=== PATIENT | male | born 1995 | race African-American/Black ===

== ENCOUNTER 2024-01-20 08:40 | Emergency (ER) | payer MEDICARE ==
--- NOTE | 2024-01-20 09:11 | RAD REPORT ---
EXAMINATION: XR RIGHT SHOUDLER CLINICAL INDICATION: Male, 28 years old. PAIN RIGHT TECHNIQUE: Multiple views of the right shoulder were obtained. COMPARISON: No prior exam. FINDINGS: No bone or joint abnormality detected.
--- NOTE | 2024-01-20 09:12 | RAD REPORT ---
EXAMINATION: CT CERVICAL SPINE WITHOUT CONTRAST HISTORY: Neck pain, radiculopathy COMPARISON: None TECHNIQUE: Multiple contiguous axial images were obtained in a CT of the cervical spine without IV co ntrast. Sagittal and coronal reformats were performed. One or more of the following dose reduction techniques were used: Automated exposure control, adjustment of the mA and kV according to patient si ze, and iterative reconstruction. Unless otherwise specified, incidental findings do not require dedicated imaging follow-up. FINDINGS: The vertebral bodies and intervertebral discs demonstrate normal height and alignment without fractu re or subluxation. No significant degenerative changes are present. No prevertebral soft tissue swelling is seen. The posterior facets are well aligned. Normal alignment of the skull base with the cervical spine is seen. The odontoid appears normal and the lateral masses are symmetric. The lung apices are unremarkable. IMPRESSION: No evidence of acute osseous abnormality of the cervical spine.
[2024-01-20] MEDS ORDERED: KETOROLAC 30 MG/ML INJ ONE (11:14)
[2024-01-20] MEDS ORDERED: HYDROCODONE/APAP 10/325 TAB ONE (11:15)
--- NOTE | 2024-01-20 12:01 | ER ---
Nurse's Notes [facility] Name: Amrit Bailey Jr Age: 28 yrs Sex: Male : 1995 Arrival Date: 01/20/2024 Time: 08:40 Bed 10 Private MD: Diagnosis: Unspecified symptoms and signs involving the musculoskeletal system;Sprain of ligaments of cervical spine, initial encounter Presentation: 01/19 09:08 Chief complaint: Right sided neck pain 01/11 after carrying large dog food bag hb yesterday. Coronavirus screen: At this time, the client does not indicate any symptoms associated with coronavirus-19. Ebola Screen: No symptoms or risks identified at this time. Initial Sepsis Screen: Does the patient meet any 2 criteria? No. Patient's initial sepsis screen is negative. Does the patient have a suspected source of infection? No. Patient's initial sepsis screen is negative. Risk Assessment: Do you want to hurt yourself or someone else? Patient reports no desire to harm self or others. Onset of symptoms was January 19, 2024. 09:08 Method Of Arrival: Ambulatory hb 09:08 Acuity: GERHARD 4 hb Triage Assessment: 09:10 General: Appears in no apparent distress. uncomfortable, Behavior is calm, cooperative. hb Pain: Pain currently is 10 out of 10 on a pain scale. Neuro: Level of Consciousness is awake, alert, obeys commands, Oriented to person, place, time, situation. Cardiovascular: Patient's skin is warm and dry. Respiratory: Respiratory effort is even, unlabored. Musculoskeletal: Reports neck pain that radiates to right arm and right back. Historical: - Allergies: 09:09 No Known Allergies; hb - Home Meds: 09:09 gabapentin oral [Active]; Flexeril Oral [Active]; hb - PMHx: 09:09 None; hb - PSHx: 09:09 None; hb - Immunization history:: Adult Immunizations up to date. - Infectious Disease History:: Denies. - Social history:: Smoking status: Patient denies any tobacco usage or history of. - Family history:: not pertinent. Screenin:15 [facility] ED Fall Risk Assessment (Adult) History of falling in the last 3 months, hb including since admission No falls in past 3 months (0 pts) Confusion or Disorientation No (0 pts) Intoxicated or Sedated No (0 pts) Impaired Gait No (0 pts) Mobility Assist Device Used No (0 pt) Altered Elimination No (0 pt) Score/Fall Risk Level 0 - 2 = Low Risk Oriented to surroundings, Maintained a safe environment, Educated pt \T\ family on fall prevention, incl call for assistance when getting out of bed. Abuse screen: Denies threats or abuse. Denies injuries from another. Nutritional screening: No deficits noted. Tuberculosis screening: No symptoms or risk factors identified. Assessment: 10:15 General: See triage assessment . hb 12:19 Reassessment: Patient appears in no apparent distress at this time. Patient and/or hb family updated on plan of care and expected duration. Pain level reassessed. Patient is alert, oriented x 3, equal unlabored respirations, skin warm/dry/pink. Vital Signs: 09:08 BP 112 / 67; Pulse 73; Resp 16; Temp 98.7(TE); Pulse Ox 99% ; Weight 74.84 kg; Height 5 hb ft. 6 in. ; Pain 10/10; 09:08 Body Mass Index 26.63 (74.84 kg, 167.64 cm) hb 09:08 Pain Scale: Adult hb ED Course: 08:42 Patient arrived in ED. im 08:43 Rudy Malone MD is Attending Physician. [facility] 08:57 CT C Spine In Process Unspecified. EDMS 09:00 Shoulder Right (2 View) XRAY In Process Unspecified. EDMS 09:09 Triage completed. hb 09:10 Arm band placed on. hb 12:25 Patient has correct armband on for positive identification. Provided Education on: hb medications, follow up. 12:25 No provider procedures requiring assistance completed. Patient did not have IV access hb during this emergency room visit. Administered Medications: 11:18 Drug: Ketorolac IVP 30 mg IVP once Route: IVP; Site: Other; hb 11:18 Drug: [place] PO 10 mg-325 mg 1 tabs PO once Route: PO; hb Medication: 10:15 VIS not applicable for this client. hb Outcome: 12:00 Discharge ordered by . shayne 12:25 Discharged to home ambulatory, hb 12:25 Condition: stable 12:25 Discharge instructions given to patient, Instructed on discharge instructions, follow up and referral plans. medication usage, Demonstrated understanding of instructions, follow-up care, medications, Prescriptions given X 3, 12:26 Patient left the ED. hb Signatures: Dispatcher [employer] Rudy Fonseca MD MD cha Baxter, Heather, RN RN Jenn Franklin
--- NOTE | 2024-01-20 12:01 | EDPHYS ---
Physician Documentation [facility] Name: Amrit Bailey Jr Age: 28 yrs Sex: Male : 1995 Arrival Date: 01/20/2024 Time: 08:40 Bed 10 Private MD: ED Physician Rudy Malone HPI: 01/19 11:55 This 28 yrs old Black Male presents to ER via Ambulatory with complaints of Neck Pain, shayne <24hrs Old, Shoulder Pain - right. 11:55 The patient or guardian complains of decreased range of motion, pain, swelling, shayne tenderness. The symptoms are located on the posterior cervical area and right trapezius. Onset: The symptoms/episode began/occurred 2 day(s) ago. Context: The problem was sustained at home, The neck injury/problem resulted from lifting. Associated signs and symptoms: The patient has no apparent associated signs or symptoms. Modifying factors: The symptoms are alleviated by remaining still, the symptoms are aggravated by movement, pressure. Severity of symptoms: At their worst the symptoms were mild, in the emergency department the symptoms are unchanged. The patient has experienced similar episodes in the past, a few times. Historical: - Allergies: 09:09 No Known Allergies; hb - Home Meds: 09:09 gabapentin oral [Active]; Flexeril Oral [Active]; hb - PMHx: 09:09 None; hb - PSHx: 09:09 None; hb - Immunization history:: Adult Immunizations up to date. - Infectious Disease History:: Denies. - Social history:: Smoking status: Patient denies any tobacco usage or history of. - Family history:: not pertinent. ROS: 11:55 Constitutional: Negative for fever, chills, and weight loss, Eyes: Negative for injury, shayne pain, redness, and discharge, ENT: Negative for injury, pain, and discharge, Cardiovascular: Negative for chest pain, palpitations, and edema, Respiratory: Negative for shortness of breath, cough, wheezing, and pleuritic chest pain, Abdomen/GI: Negative for abdominal pain, nausea, vomiting, diarrhea, and constipation, : Negative for injury, bleeding, discharge, and swelling, MS/Extremity: Negative for injury and deformity, Skin: Negative for injury, rash, and discoloration, Neuro: Negative for headache, weakness, numbness, tingling, and seizure, Psych: Negative for depression, anxiety, suicide ideation, homicidal ideation, and hallucinations, Allergy/Immunology: Negative for hives, rash, and allergies, Endocrine: Negative for neck swelling, polydipsia, polyuria, polyphagia, and marked weight changes, Hematologic/Lymphatic: Negative for swollen nodes, abnormal bleeding, and unusual bruising, 11:55 Neck: Positive for pain with movement, pain at rest, swelling, tenderness, 11:55 Back: Positive for pain at rest, pain with movement, of the posterior cervical area, right trapezius and right scapular area, 11:55 MS/extremity: Positive for decreased range of motion, pain, tenderness, of the back and right trapezius and posterior cervical area, Exam: 11:55 Constitutional: This is a well developed, well nourished patient who is awake, alert, shayne and in no acute distress. Head/Face: Normocephalic, atraumatic. Eyes: Pupils equal round and reactive to light, extra-ocular motions intact. Lids and lashes normal. Conjunctiva and sclera are non-icteric and not injected. Cornea within normal limits. Periorbital areas with no swelling, redness, or edema. Neck: Trachea midline, no thyromegaly or masses palpated, and no cervical lymphadenopathy. Supple, full range of motion without nuchal rigidity, or vertebral point tenderness. No Meningismus. Chest/axilla: Normal chest wall appearance and motion. Nontender with no deformity. No lesions are appreciated. Cardiovascular: Regular rate and rhythm with a normal S1 and S2. No gallops, murmurs, or rubs. Normal PMI, no JVD. No pulse deficits. Respiratory: Lungs have equal breath sounds bilaterally, clear to auscultation and percussion. No rales, rhonchi or wheezes noted. No increased work of breathing, no retractions or nasal flaring. Abdomen/GI: Soft, non-tender, with normal bowel sounds. No distension or tympany. No guarding or rebound. No evidence of tenderness throughout. Male : Normal genitalia with no discharge or lesions. Skin: Warm, dry with normal turgor. Normal color with no rashes, no lesions, and no evidence of cellulitis. MS/ Extremity: Pulses equal, no cyanosis. Neurovascular intact. Full, normal range of motion. Neuro: Awake and alert, GCS 15, oriented to person, place, time, and situation. Cranial nerves II-XII grossly intact. Motor strength 5/5 in all extremities. Sensory grossly intact. Cerebellar exam normal. Normal gait. Psych: Awake, alert, with orientation to person, place and time. Behavior, mood, and affect are within normal limits. 11:55 Neck: ROM/movement: pain, that is mild, with extension, with flexion, limited range of motion, that is mild, with flexion, with extension, Meningeal signs: are not present, Kernig's sign is negative, Brudzinski's sign is negative, nuchal rigidity, is not appreciated, Vital Signs: 09:08 BP 112 / 67; Pulse 73; Resp 16; Temp 98.7(TE); Pulse Ox 99% ; Weight 74.84 kg; Height 5 hb ft. 6 in. ; Pain 10/10; 09:08 Body Mass Index 26.63 (74.84 kg, 167.64 cm) hb 09:08 Pain Scale: Adult hb MDM: 08:43 Medical Screening Exam initiated shayne 11:58 Differential diagnosis: C-Spine Fracture Cervical Raiculopathy Cervical Spondylosis shayne cervical strain, Degenerative Disc Disease Spondylolisthesis Spondylosis torticollis. Data reviewed: vital signs, nurses notes, radiologic studies, CT scan, plain films. Consideration of Admission/Observation Escalation of care including admission/observation considered. I considered the following discharge prescriptions or medication management in the emergency department Medications were administered in the Emergency Department. See MAR. Independent interpretation of the following test(s) in the Emergency Department CT Scan: My interpretation is ct c spine. Test considered but Not performed: Labs: no labs. Care significantly affected by the following chronic conditions: neg. Counseling: I had a detailed discussion with the patient and/or guardian regarding the historical points, exam findings, and any diagnostic results supporting the discharge/admit diagnosis, radiology results, the need for outpatient follow up, for definitive care, a family practitioner. 01/19 08:44 Order name: Shoulder Right (2 View) XRAY; Complete Time: 11:45 shayne 01/19 08:44 Order name: CT C Spine; Complete Time: 11:45 shayne Administered Medications: 11:18 Drug: Ketorolac IVP 30 mg IVP once Route: IVP; Site: Other; hb 11:18 Drug: [place] PO 10 mg-325 mg 1 tabs PO once Route: PO; hb Disposition Summary: 01/20/24 12:00 Discharge Ordered Notes: Location: Home [facility] Problem: new shayne Symptoms: have improved shayne Condition: Stable shayne Diagnosis - Unspecified symptoms and signs involving the musculoskeletal system shayne - Sprain of ligaments of cervical spine, initial encounter shayne Followup: shayne - With: Private Physician - When: 2 - 3 days - Reason: Recheck today's complaints, Continuance of care, Re-evaluation by your physician Discharge Instructions: - Discharge Summary Sheet shayne - Musculoskeletal Pain shayne - Cervical Sprain shayne - Cervical Sprain, [id number] [facility] Forms: - Medication Reconciliation Form shayne - Antibiotic Education shayne - Prescription Opioid Use shayne - Patient Portal Instructions [facility] - Leadership Thank You Letter [facility] Prescriptions: - Ibuprofen 600 mg Oral Tablet - take 1 tablet ORAL route every 6 hours As needed take with food; 30 tablet; [facility] Refills: 0, Product Selection Permitted - Medrol (Bertin) 4 mg Oral Tablets, Dose Pack - take 1 tablet ORAL route as directed - follow package instructions; 1 packet; [facility] Refills: 0, Product Selection Permitted - Cyclobenzaprine 5 mg Oral Tablet - take 1 tablet ORAL route 3 times per day As needed; 15 tablet; Refills: 0, [facility] Product Selection Permitted Signatures: Dispatcher [employer] Rudy Fonseca MD MD cha Baxter, Heather RN RN Corrections: (The following items were deleted from the chart) 08:44 08:44 C Spine Wo [id number].BRZ ordered. KAYLEY ZALDIVAR
[2024-01-20 12:31] VITALS: BP 112/67; TEMP 98.7; O2SAT 99
== END 2024-01-20 12:26 | disposition home or self-care (01) ==
LOC: ER 08:40
DX: S13.4XXA Sprain of ligaments of cervical spine, initial encounter (principal)
CPT/HCPCS: 72125; 96374; 99284

== ENCOUNTER 2024-07-29 12:21 | Emergency (ER) | payer MEDICARE ==
--- NOTE | 2024-07-29 12:59 | RAD REPORT ---
EXAMINATION: CT CERVICAL SPINE WITHOUT CONTRAST HISTORY: PAIN COMPARISON: None TECHNIQUE: Multiple contiguous axial images were obtained in a CT of the cervical spine without IV co ntrast. Sagittal and coronal reformats were performed. One or more of the following dose reduction techniques were used: Automated exposure control, adjustment of the mA and kV according to patient si ze, and iterative reconstruction. Unless otherwise specified, incidental findings do not require dedicated imaging follow-up. FINDINGS: The vertebral bodies and intervertebral discs demonstrate normal height and alignment without fractu re or subluxation. No significant degenerative changes are present. No prevertebral soft tissue swelling is seen. The posterior facets are well aligned. Normal alignment of the skull base with the cervical spine is seen. The odontoid appears normal and the lateral masses are symmetric. The lung apices are unremarkable. 2 cm left thyroid nodule. IMPRESSION: No evidence of acute osseous abnormality of the cervical spine.
[2024-07-29] MEDS ORDERED: dexAMETHasone 4 MG TAB ONE (14:59)
[2024-07-29] MEDS ORDERED: LIDOCAINE 4% PATCH ONE (15:00)
[2024-07-29] MEDS ORDERED: KETOROLAC 30 MG/ML INJ ONE (15:00)
--- NOTE | 2024-07-29 15:27 | EDPHYS ---
Physician Documentation [facility] Name: Amrit Bailey Jr Age: 28 yrs Sex: Male : 1995 Arrival Date: 07/29/2024 Time: 12:21 Bed DX2 Private MD: ED Physician Rudy Malone HPI: 07/29 15:20 This 28 yrs old Black Male presents to ER via Ambulatory with complaints of Stiff Neck, shayne RT Side Pain. 15:20 The patient or guardian complains of decreased range of motion, pain. The symptoms are shayne located at the cervical spine on the right mid cervical area, right trapezius, right posterior aspect of neck and right lateral aspect of neck. Onset: The symptoms/episode began/occurred 2 day(s) ago. Context: The problem was sustained at an unknown location, The neck injury/problem resulted from from unknown cause. Associated signs and symptoms: The patient has no apparent associated signs or symptoms. Severity of symptoms: At their worst the symptoms were moderate, in the emergency department the symptoms are unchanged. The patient has not experienced similar symptoms in the past. Historical: - Allergies: 12:38 Iodine; me1 - PMHx: 12:38 None; me1 - PSHx: 12:38 None; me1 - Immunization history:: Adult Immunizations up to date. - Infectious Disease History:: Denies. - Social history:: Smoking status: Reported history of juuling and/or vaping. ROS: 15:22 Constitutional: Negative for fever, chills, and weight loss, Eyes: Negative for injury, shayne pain, redness, and discharge, ENT: Negative for injury, pain, and discharge, Cardiovascular: Negative for chest pain, palpitations, and edema, Respiratory: Negative for shortness of breath, cough, wheezing, and pleuritic chest pain, Abdomen/GI: Negative for abdominal pain, nausea, vomiting, diarrhea, and constipation, Back: Negative for injury and pain, : Negative for injury, bleeding, discharge, and swelling, MS/Extremity: Negative for injury and deformity, Skin: Negative for injury, rash, and discoloration, Neuro: Negative for headache, weakness, numbness, tingling, and seizure, Psych: Negative for depression, anxiety, suicide ideation, homicidal ideation, and hallucinations, Allergy/Immunology: Negative for hives, rash, and allergies, Endocrine: Negative for neck swelling, polydipsia, polyuria, polyphagia, and marked weight changes, Hematologic/Lymphatic: Negative for swollen nodes, abnormal bleeding, and unusual bruising, 15:22 Neck: Positive for injury or acute deformity, pain with movement, pain at rest, of the right lateral aspect of neck and right posterior aspect of neck and right trapezius, Exam: 15:22 Constitutional: This is a well developed, well nourished patient who is awake, alert, shayne and in no acute distress. Head/Face: Normocephalic, atraumatic. Eyes: Pupils equal round and reactive to light, extra-ocular motions intact. Lids and lashes normal. Conjunctiva and sclera are non-icteric and not injected. Cornea within normal limits. Periorbital areas with no swelling, redness, or edema. ENT: Nares patent. No nasal discharge, no septal abnormalities noted. Tympanic membranes are normal and external auditory canals are clear. Oropharynx with no redness, swelling, or masses, exudates, or evidence of obstruction, uvula midline. Mucous membranes moist. Chest/axilla: Normal chest wall appearance and motion. Nontender with no deformity. No lesions are appreciated. Cardiovascular: Regular rate and rhythm with a normal S1 and S2. No gallops, murmurs, or rubs. Normal PMI, no JVD. No pulse deficits. Respiratory: Lungs have equal breath sounds bilaterally, clear to auscultation and percussion. No rales, rhonchi or wheezes noted. No increased work of breathing, no retractions or nasal flaring. Abdomen/GI: Soft, non-tender, with normal bowel sounds. No distension or tympany. No guarding or rebound. No evidence of tenderness throughout. Back: No spinal tenderness. No costovertebral tenderness. Full range of motion. Skin: Warm, dry with normal turgor. Normal color with no rashes, no lesions, and no evidence of cellulitis. MS/ Extremity: Pulses equal, no cyanosis. Neurovascular intact. Full, normal range of motion., bilateral aka Neuro: Awake and alert, GCS 15, oriented to person, place, time, and situation. Cranial nerves II-XII grossly intact. Motor strength 5/5 in all extremities. Sensory grossly intact. Cerebellar exam normal. Normal gait. Psych: Awake, alert, with orientation to person, place and time. Behavior, mood, and affect are within normal limits. 15:22 Neck: External neck: is normal, C-spine: pain on right neck musculature, Vital Signs: 12:36 BP 118 / 79; Pulse 77; Resp 16; Temp 98.2; Pulse Ox 99% ; Weight 72.57 kg; Height 5 ft. me1 6 in. ; Pain 10/10; 12:36 Body Mass Index 25.82 (72.57 kg, 167.64 cm) me1 12:36 Pain Scale: Adult me1 MDM: 12:27 Medical Screening Exam initiated shayne 12:41 Medical Screening Exam initiated shayne 15:23 Differential diagnosis: Cervical Disc Herniation Cervical Raiculopathy cervical strain, shayne Degenerative Disc Disease Neck Abrasion Neck Contusion Spondylosis. Data reviewed: vital signs, nurses notes, radiologic studies. Consideration of Admission/Observation Escalation of care including admission/observation considered. I considered the following discharge prescriptions or medication management in the emergency department Medications were administered in the Emergency Department. See MAR. Independent interpretation of the following test(s) in the Emergency Department CT Scan: My interpretation is ct c spine. Historians other than the Patient: ct vani tirado. 07/29 12:28 Order name: CT C Spine; Complete Time: 15:07 shayne Administered Medications: 14:58 Not Given (PT states he does not have a ride homee): diazepam5 mg PO once ss 15:11 Drug: Ketorolac IM 60 mg IM once Route: IM; Site: left gluteus; ss 15:50 Follow up: Response: No adverse reaction ss 15:11 Drug: Dexamethasone PO 10 mg PO once Route: PO; ss 15:50 Follow up: Response: No adverse reaction ss 15:13 Drug: Lidocaine Topical Solution (4%) 1 patches Topical once; Lidocaine patch to ss affected area {Note: lidocaine patch placed to R side of neck/ shoulder area per patient request. .} Route: Topical; Site: affected area; Disposition Summary: 07/29/24 15:27 Discharge Ordered Notes: Location: Home shayne Problem: new shayne Symptoms: have improved shayne Condition: Stable shayne Diagnosis - Unspecified symptoms and signs involving the musculoskeletal system shayne - Strain of muscle, fascia and tendon at neck level, initial encounter shayne - Torticollis shayne Followup: shayne - With: Private Physician - When: 2 - 3 days - Reason: Recheck today's complaints, Continuance of care, Re-evaluation by your physician Followup: shayne - With: Momo Penn MD - When: 2 - 3 days - Reason: Recheck today's complaints, Re-evaluation by your physician Discharge Instructions: - Discharge Summary Sheet shayne - Musculoskeletal Pain shayne - Acute Torticollis, Adult [facility] Forms: - Medication Reconciliation Form shayne - Antibiotic Education shayne - Prescription Opioid Use shayne - Patient Portal Instructions [facility] - Leadership Thank You Letter [facility] Prescriptions: - Ibuprofen 600 mg Oral Tablet - take 1 tablet ORAL route every 6 hours As needed take with food; 30 tablet; [facility] Refills: 0, Product Selection Permitted - Tylenol 325 mg Oral tablet - take 2 tablets ORAL route every 6 hours as needed; 16 tablet; Refills: 0, [facility] Product Selection Permitted - Medrol (Bertin) 4 mg Oral Tablets, Dose Pack - take 1 tablet ORAL route as directed - follow package instructions; 1 packet; [facility] Refills: 0, Product Selection Permitted - methocarbamol 750 mg Oral tablet - take 1 tablet ORAL route 4 times per day; 28 tablet; Refills: 0, Product [facility] Selection Permitted Signatures: Dispatcher [employer] Rudy Fonseca MD MD cha Blanchard, Shelby, NICKOLAS RN Shalini Ernst, NICKOLAS RN me1 Corrections: (The following items were deleted from the chart) 12:39 12:38 PMHx: Hypertensive disorder; me1 me1
--- NOTE | 2024-07-29 15:27 | ER ---
Nurse's Notes [facility] Name: Amrit Bailey Jr Age: 28 yrs Sex: Male : 1995 Arrival Date: 07/29/2024 Time: 12:21 Bed DX2 Private MD: Diagnosis: Unspecified symptoms and signs involving the musculoskeletal system;Strain of muscle, fascia and tendon at neck level, initial encounter;Torticollis Presentation: 07/29 12:36 Chief complaint: Patient states: woke up Tuesday with pain to right neck and trapezius me1 that radiates down to right shoulder and has continued to become more stiff and painful. Pain 10/10, burning. Denies injury. Coronavirus screen: Vaccine status: Patient reports being unvaccinated. Ebola Screen: No symptoms or risks identified at this time. Initial Sepsis Screen: Does the patient meet any 2 criteria? No. Patient's initial sepsis screen is negative. Does the patient have a suspected source of infection? No. Patient's initial sepsis screen is negative. Risk Assessment: Do you want to hurt yourself or someone else? Patient reports no desire to harm self or others. Onset of symptoms was July 27, 2024. 12:36 Method Of Arrival: Ambulatory me1 12:36 Acuity: GERHARD 3 me1 Historical: - Allergies: 12:38 Iodine; me1 - PMHx: 12:38 None; me1 - PSHx: 12:38 None; me1 - Immunization history:: Adult Immunizations up to date. - Infectious Disease History:: Denies. - Social history:: Smoking status: Reported history of juuling and/or vaping. Screenin:48 Abuse screen: Denies threats or abuse. Denies injuries from another. Nutritional ss screening: No deficits noted. Tuberculosis screening: Never had TB. Assessment: 15:15 General: Appears uncomfortable, Behavior is calm, cooperative. Pain: Complains of pain ss in right lateral aspect of neck and right posterior aspect of neck and right trapezius and right mid cervical area Pain currently is 10 out of 10 on a pain scale. Quality of pain is described as aching, tender, Is continuous. Neuro: Level of Consciousness is awake, alert, obeys commands, Oriented to person, place, time, situation, Denies weakness dizziness, paresthesias numbness. Respiratory: Airway is patent Respiratory effort is even, unlabored, Respiratory pattern is regular, symmetrical. Derm: Skin is intact, is healthy with good turgor, Skin is pink, warm \T\ dry. normal. Musculoskeletal: Range of motion: limited in neck. 15:48 Reassessment: Patient appears in no apparent distress at this time. Patient and/or ss family updated on plan of care and expected duration. Pain level reassessed. Patient is alert, oriented x 3, equal unlabored respirations, skin warm/dry/pink. Vital Signs: 12:36 BP 118 / 79; Pulse 77; Resp 16; Temp 98.2; Pulse Ox 99% ; Weight 72.57 kg; Height 5 ft. me1 6 in. ; Pain 10/10; 12:36 Body Mass Index 25.82 (72.57 kg, 167.64 cm) me1 12:36 Pain Scale: Adult sd1 ED Course: 12:24 Patient arrived in ED. cj3 12:27 Rudy Malone MD is Attending Physician. shayne 12:38 Triage completed. me1 12:38 Arm band placed on Patient placed in waiting room. me1 12:53 CT C Spine In Process Unspecified. EDMS 14:56 Kailee Angulo, NICKOLSA is Primary Nurse. ss 15:26 Momo Penn MD is Referral Physician. shayne 15:48 Patient has correct armband on for positive identification. ss 15:48 No provider procedures requiring assistance completed. Patient did not have IV access ss during this emergency room visit. Administered Medications: 14:58 Not Given (PT states he does not have a ride homee): diazepam5 mg PO once ss 15:11 Drug: Ketorolac IM 60 mg IM once Route: IM; Site: left gluteus; ss 15:50 Follow up: Response: No adverse reaction ss 15:11 Drug: Dexamethasone PO 10 mg PO once Route: PO; ss 15:50 Follow up: Response: No adverse reaction 15:13 Drug: Lidocaine Topical Solution (4%) 1 patches Topical once; Lidocaine patch to ss affected area {Note: lidocaine patch placed to R side of neck/ shoulder area per patient request. .} Route: Topical; Site: affected area; Medication: 15:48 VIS not applicable for this client. ss Outcome: 15:27 Discharge ordered by . shayne 15:48 Discharged to home ambulatory, ss 15:48 Condition: good 15:48 Discharge instructions given to patient, Instructed on discharge instructions, follow up and referral plans. medication usage, Demonstrated understanding of instructions, follow-up care, medications, Prescriptions given X 4, 15:50 Patient left the ED. Signatures: Dispatcher [employer] EDDE Rudy Malone MD MD cha Blanchard, Shelby, RN RN Shalini Ernst RN RN me1 Tess Ruiz 3 Corrections: (The following items were deleted from the chart) 12:39 12:38 PMHx: Hypertensive disorder; me1 me1
[2024-07-31 05:54] VITALS: BP 118/79; TEMP 98.2; O2SAT 99
== END 2024-07-29 15:50 | disposition home or self-care (01) ==
LOC: ER 12:21
DX: S16.1XXA Strain of muscle, fascia and tendon at neck level, initial encounter (principal); M43.6 Torticollis
CPT/HCPCS: 72125; 96372; 99284; J2003; J8540